=== PATIENT | female | born 2000 | race Caucasian/White ===

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

== ENCOUNTER → 2020-08-12 11:29 | Outpatient (CLI) | payer OTHER ==
[2019-10-15 23:32] VITALS: BMI 21.6
[~2020-08-12 11:29] MED LIST changes: +OMNICEF300 MG PO
== END | disposition home or self-care (01) ==
LOC: D.US 08-10 08:30
PROVIDERS: ATTEND Internal Medicine Gastroenterology
DX: R10.84 Generalized abdominal pain (principal)